=== PATIENT | male | born 1960 | race Caucasian/White ===

== ENCOUNTER 2018-04-02 12:25 | Emergency (ER) | payer SELFPAY ==
--- NOTE | 2018-04-02 12:28 | ER Report ---
History and Physical Time Seen By MD: 12:29 HPI/ROS CHIEF COMPLAINT: Exertional shortness of breath HISTORY OF PRESENT ILLNESS: This is a 57-year-old male who presents to the emergency department via EMS from urgent care for exertional shortness of breath. 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 Patient states then roughly 1 week ago he noticed his heart rate was elevated and had exertional dyspnea, today the shortness of breath became concerning, he did go to urgent care, they noted that he was in a flutter and subsequently sent him to the emergency department for further evaluation. Patient denies having history of atrial fibrillation or flutter patient is a type II diabetic with a history of hypertension otherwise no significant past medical history. Patient is morbidly obese. Patient arrives alert and oriented. No chest pain, no fevers or chills. No nausea or vomiting. No headaches. REVIEW OF SYSTEMS: Constitutional: No fever, no chills. Eyes: No discharge. ENT: No sore throat. Cardiovascular: As above. Respiratory: As above. Gastrointestinal: No abdominal pain, no vomiting. Genitourinary: No hematuria. Musculoskeletal: No back pain. Skin: No rashes. Neurological: No headache. Allergies: Coded Allergies: No Known Drug Allergies (Unverified , 04/02/18) Home Meds Active Scripts Rivaroxaban 20 Mg (XARELTO 20 MG) 20 Mg Tablet, 20 MG PO DAILY for 30 Days, #30 TAB 0 Refills Prov:OTTO MIGUEL- 04/02/18 Metoprolol Tartrate (METOPROLOL TARTRATE) 25 Mg Tablet, 2 TAB PO BID for 30 Days, #130 TAB 0 Refills Prov:OTTO MIGUEL- 04/02/18 Past Medical/Surgical History The patient has a past medical and surgical history of hypertension, non-i nsulin-dependent diabetic. Reviewed Nurses Notes: Yes Constitutional Vital Sign - Last 24 Hours 04/02/18 04/02/18 04/02/18 04/02/18 12:25 12:26 12:29 12:30 Temp 98.9 Pulse ??? 144 Resp 24 B/P (MAP) 148/99 (115) 93/76 93/76 (82) Pulse Ox 88 O2 Delivery Room Air 04/02/18 04/02/18 04/02/18 04/02/18 12:38 12:38 12:40 13:00 Pulse 143 Resp 20 B/P (MAP) 126/94 (105) 155/98 (117) Pulse Ox 93 O2 Flow Rate 2.0 04/02/18 04/02/18 04/02/18 04/02/18 13:05 13:20 13:30 13:35 Pulse 142 141 ??? Resp 20 12 B/P (MAP) ???/??? (1665) Pulse Ox 92 93 04/02/18 04/02/18 04/02/18 04/02/18 13:43 13:50 14:00 14:05 Pulse 134 115 Resp 20 25 B/P (MAP) 133/92 (106) 128/94 (105) Pulse Ox 94 96 04/02/18 04/02/18 04/02/18 04/02/18 14:20 14:30 14:35 14:50 Pulse 139 142 130 Resp 24 25 19 B/P (MAP) 132/95 (107) Pulse Ox 95 97 96 04/02/18 04/02/18 04/02/18 04/02/18 14:51 14:56 15:00 15:26 Pulse 142 112 Resp 18 14 B/P (MAP) 121/99 (106) 130/98 (109) Pulse Ox 97 95 04/02/18 04/02/18 04/02/18 04/02/18 15:30 15:56 16:01 16:30 Pulse 109 110 Resp 18 21 B/P (MAP) 125/87 (100) 109/85 (93) Pulse Ox 92 90 04/02/18 16:31 Pulse 109 Resp 22 Pulse Ox 93 Physical Exam General Appearance: The patient is alert, has no immediate need for airway protection and no signs of toxicity. Eyes: Pupils equal and round no pallor or injection. ENT, Mouth: Mucous membranes are moist. Respiratory: There are no retractions, lungs are clear to auscultation. Cardiovascular: Irregular rate and rhythm, no murmurs, clicks or rubs. Gastrointestinal: Abdomen is obese, soft and non tender, no masses, bowel sounds normal. Neurological: Alert and oriented 4. Moving all extremities. Following all co mmands. No focal neuro deficits. Skin: Warm and dry, no rashes. Musculoskeletal: Neck is supple non tender. Extremities are nontender, nonswollen and have full range of motion. DIFFERENTIAL DIAGNOSIS: After history and physical exam differential diagnosis was considered for shortness of breath including but not limited to pulmonary infectious process, COPD, asthma, pulmonary embolus and congestive heart failure. Medical Decision Making Data Points Result Diagram: 04/02/18 1207 04/02/18 1207 Laboratory Hematology Test 04/02/18 12:07 04/02/18 15:59 Red Blood Count 4.81 M/uL (4.00-5.60) Mean Corpuscular Volume 88.2 fL (80.0-96.0) Mean Corpuscular Hemoglobin 29.3 pg (26.0-33.0) Mean Corpuscular Hemoglobin Concent 33.3 g/dL (32.0-36.0) Red Cell Distribution Width 13.7 % (11.5-14.5) Mean Platelet Volume 11.4 fL (7.2-11.1) Neutrophils (%) (Auto) 65.9 % (39.4-72.5) Lymphocytes (%) (Auto) 27.1 % (17.6-49.6) Monocytes (%) (Auto) 4.9 % (4.1-12.4) Eosinophils (%) (Auto) 1.0 % (0.4-6.7) Basophils (%) (Auto) 1.1 % (0.3-1.4) Nucleated RBC Relative Count (auto) 0.1 /100WBC Neutrophils # (Auto) 8.2 K/uL (2.0-7.4) Lymphocytes # (Auto) 3.4 K/uL (1.3-3.6) Monocytes # (Auto) 0.6 K/uL (0.3-1.0) Eosinophils # (Auto) 0.1 K/uL (0.0-0.5) Basophils # (Auto) 0.1 K/uL (0.0-0.1) Nucleated RBC Absolute Count (auto) 0.01 K/uL D-Dimer Quantitative (PE/DVT) 0.85 ug/ml (0-0.50) Sodium Level 137 mmol/L (137-145) Potassium Level 4.0 mmol/L (3.5-5.0) Chloride Level 102 mmol/L (98-107) Carbon Dioxide Level 23 mmol/L (22-30) Blood Urea Nitrogen 19 mg/dl (9-21) Creatinine 1.30 mg/dl (0.66-1.25) Glomerular Filtration Rate Calc 57.3 Random Glucose 269 mg/dl (75-110) Calcium Level 9.2 mg/dl (8.4-10.2) Total Bilirubin 0.6 mg/dl (0.2-1.3) Aspartate Amino Transf (AST/SGOT) 27 U/L (0-35) Alanine Aminotransferase (ALT/SGPT) 51 U/L (0-56) Alkaline Phosphatase 76 U/L (0-126) B-Type Natriuretic Peptide 184 pg/ml (0-100) Total Protein 6.9 g/dl (6.3-8.2) Albumin 3.8 g/dl (3.5-5.0) Troponin I 0.071 ng/ml Chemistry Test 04/02/18 12:07 04/02/18 15:59 White Blood Count 12.4 k/uL (4.5-11.0) Red Blood Count 4.81 M/uL (4.00-5.60) Hemoglobin 14.1 g/dL (14.0-18.0) Hematocrit 42.4 % (42.0-52.0) Mean Corpuscular Volume 88.2 fL (80.0-96.0) Mean Corpuscular Hemoglobin 29.3 pg (26.0-33.0) Mean Corpuscular Hemoglobin Concent 33.3 g/dL (32.0-36.0) Red Cell Distribution Width 13.7 % (11.5-14.5) Platelet Count 182 K/uL (150-450) Mean Platelet Volume 11.4 fL (7.2-11.1) Neutrophils (%) (Auto) 65.9 % (39.4-72.5) Lymphocytes (%) (Auto) 27.1 % (17.6-49.6) Monocytes (%) (Auto) 4.9 % (4.1-12.4) Eosinophils (%) (Auto) 1.0 % (0.4-6.7) Basophils (%) (Auto) 1.1 % (0.3-1.4) Nucleated RBC Relative Count (auto) 0.1 /100WBC Neutrophils # (Auto) 8.2 K/uL (2.0-7.4) Lymphocytes # (Auto) 3.4 K/uL (1.3-3.6) Monocytes # (Auto) 0.6 K/uL (0.3-1.0) Eosinophils # (Auto) 0.1 K/uL (0.0-0.5) Basophils # (Auto) 0.1 K/uL (0.0-0.1) Nucleated RBC Absolute Count (auto) 0.01 K/uL D-Dimer Quantitative (PE/DVT) 0.85 ug/ml (0-0.50) Glomerular Filtration Rate Calc 57.3 Calcium Level 9.2 mg/dl (8.4-10.2) Total Bilirubin 0.6 mg/dl (0.2-1.3) Aspartate Amino Transf (AST/SGOT) 27 U/L (0-35) Alanine Aminotransferase (ALT/SGPT) 51 U/L (0-56) Alkaline Phosphatase 76 U/L (0-126) B-Type Natriuretic Peptide 184 pg/ml (0-100) Total Protein 6.9 g/dl (6.3-8.2) Albumin 3.8 g/dl (3.5-5.0) Troponin I 0.071 ng/ml Coagulation Test 04/02/18 12:07 D-Dimer Quantitative (PE/DVT) 0.85 ug/ml EKG/Imaging EKG Interpretation 12 lead EKG: Time of EKG 1234. Rhythm: Atrial flutter with a 21 AV conduction, rate of 144 bpm. Hayes: normal QRS: normal ST segments: No ST depression or elevation identified. No previous EKGs for comparison. 12 lead EKG: Time of repeat EKG 1556. Rhythm: Atrial flutter, rate of 109 BPM. Hayes: normal QRS: normal ST segments: No ST depression or elevation identified. Controlled rate as compared to the previous EKG. Imaging Location: [facility] - [place] Patient: Hernan Doan : 1960 Visit/Account:[id number] Date of Sevice: 04/02/2018 Technique: CHEST PA AND LAT HISTORY: Respiratory distress COMPARISON: None available Findings: No acute airspace consolidation. There is mild bibasilar atelectasis. No pleural effusion. The cardiomediastinal silhouette is unremarkable. IMPRESSION: 1. Mild bibasilar atelectasis. Report Dictated By: Ravi Castorena DO at 04/02/2018 1:01 PM Report E-Signed By: Ravi Castorena DO at 04/02/2018 1:04 PM WSN:[id number] FINDINGS: Pulmonary vasculature: There is good contrast opacification of the pulmonary arterial system. No pulmonary embolism. Main pulmonary artery size is normal. Cardiac and mediastinum: Cardiac chambers are prominent. No pericardial effusion. No thoracic aortic aneurysm. Lymph nodes: Numerous mildly enlarged mediastinal and hilar lymph nodes. A dominant subcarinal lymph node measures 3.3 x 2.0 cm. Lungs and pleura: Small to moderate right and small left low-attenuation simple appearing pleural effusions. Mild associated lung base atelectasis. No consolidation or definite nodule. No pneumothorax or edema. Airways: Negative. Upper abdomen: No acute findings. Osseous structures: Thoracic spine multilevel mild degenerative change. No acute findings. IMPRESSION: 1. No pulmonary embolism. 2. Small to moderate right and small left pleural effusions. 3. Nonspecific mediastinal and hilar lymph node enlargement. This could be reactive although correlation with any history of malignancy is recommended. If there are risk factors for malignancy, CT follow-up in 3 months versus pulmonary referral for potential transbronchial biopsy is recommended. Results were discussed with OTTO MIGUEL at 04/02/2018 2:28 PM. Report Dictated By: Bowen Albrecht MD at 04/02/2018 1:59 PM Report E-Signed By: Bowen Albrecht MD at 04/02/2018 2:40 PM WSN:[id number] ED Course/Re-evaluation Clinical Indication for ER IV: Hydration, IV Access ED Course The patient was admitted to room. A history and physical were obtained. Differential diagnoses were considered. An IV was started. A CBC, CMP, troponin and d-dimer were obtained. WBCs 12.4, creatinine 1.3, glucose 269, BNP 184, initial troponin 0.066 in the indeterminate range, elevated d-dimer at 0.85. The patient's repeat troponin was 0.071, I did not believe this is from ACS I believe this is secondary to atrial flutter. I reviewed the laboratory studies with the patient, 2 view chest x-ray showing no acute cardiopulmonary process. A CT of the chest was negative for a pulmonary embolus, he did have bilateral pleural effusions, likely from A flutter. several nodules identified, I did review this with the patient, I did recommend that he follows up with his primary care provider when he returns home for reevaluation of the nodules. The patient was given 20 mg IV diltiazem 2, 2nd dose decreased heart rate to 120s for about 20 minutes. Patient was then given 5 mg IV metoprolol, patient resp onded well to this, heart rate did come down from the 140s to around 100. Did follow-up with 50 mg by mouth immediately release metoprolol. As the patient has been symptomatic for roughly a week and unsure when his arrhythmia started, the patient I discussed at length the potential for blood clots from his fibrillation and atrial flutter, which time I did recommend anticoagulation, the patient did express understanding, patient was given 20 mg by mouth Xarelto in the emergency department, he was also given a prescription for 1 month's worth of Xarelto we discussed potential side effects as well. Patient was also given a month's worth of metoprolol, we did discuss potential size effects including but not limited to hypotension. I did offer to keep the patient an admit to the hospital to ensure that his rhythm remained in a controlled rate as well as monitoring his blood pressure and starting him on anticoagulation, patient declined I offered several times he continued to decline. I did stress the importance of following up with his primary care provider when he returns home as well as filling the medications. The patient expressed understanding and was discharged home. We did ambulate the patient prior to discharge, improved dyspnea, SPO2 remained in the mid to upper 90s on room air. Decision to Disposition Date: Apr 02, 2018 Decision to Disposition Time: 16:50 Depart Departure Latest Vital Signs Vital Signs Date Time Temp Pulse Resp B/P (MAP) Pulse Ox O2 Delivery O2 Flow Rate FiO2 04/02/18 16:31 109 22 93 04/02/18 16:30 109/85 (93) 04/02/18 12:38 2.0 04/02/18 12:29 98.9 Room Air Impression: Primary Impression: Atrial flutter Additional Impression: Pleural effusion Condition: Improved Disposition: HOME OR SELF-CARE New Scripts Rivaroxaban 20 Mg (XARELTO 20 MG) 20 Mg Tablet 20 MG PO DAILY for 30 Days, #30 TAB 0 Refills Prov: OTTO MIGUEL [employer]- 04/02/18 Metoprolol Tartrate (METOPROLOL TARTRATE) 25 Mg Tablet 2 TAB PO BID for 30 Days, #130 TAB 0 Refills Prov: OTTO MIGUEL Robert [facility]- 04/02/18 Patient Instructions: Atrial Flutter (ED), Metoprolol (By injection), Pleural Effusion (ED), Safe Use of Anticoagulants (ED) Additional Instructions: You have been diagnosed with atrial flutter. The CT of your chest does not show any signs of a blood clot, you do however have a small amount of fluid in the base of your lungs called a pleural effusion, this is likely secondary to your heart not beating normally over the past week. With an irregular heart beat you are at risk for a clot, therefore we are star ting you on an anticoagulant that does increase your chance for bleeding, it is called Xarelto, you will take 20mg once a day. I am also starting you on a medication for your irregular heart beat called metoprolol, you will start on 50mg twice a day, do pay attention to your blood pressure and how you are feeling as this can cause your blood pressure to drop low, if you feel like you are dizzy or have any other concerns please stop driving and call 911. I have given you a 30 day supply of both of these medications, you must follow up with your Primary care provider when you return home. You will likely follow up with a shipping specialist too. Drink plenty of water, Get plenty of rest. Return to the ED for any other concerns or worsening symptoms, or follow up in the nearest emergency department. Follow-up with your primary care provider when he returne home for reevaluation of the nodules noted on the CT. Problem Qualifiers Primary Impression: Atrial flutter Atrial flutter type: unspecified Qualified Codes: I48.92 - Unspecified atrial flutter OTTO MIGUEL [facility]- Apr 02, 2018 12:28
[2018-04-02 12:45] LABS: PLATELET COUNT, AUTOMATED 182 K/uL (150-450)
[2018-04-02] MEDS ORDERED: NS(*) 0.9% 1000 ML BAG 1,000 ML IV ONE (12:45)
[2018-04-02] MEDS ORDERED: DILTIAZEM 5 MG/ML 5ML IVPUSH IVP ONE ×2 (12:45→13:25)
--- NOTE | 2018-04-02 13:08 | RADIOLOGY IMAGING REPORT ---
FACILITY: [facility] - [place] PATIENT NAME: Hernan Doan : 1960 MR: [id number] V: [id number] EXAM DATE: ORDERING PHYSICIAN: OTTO MIGUEL TECHNOLOGIST: Location: [facility] - [place] Patient: Hernan Doan : 1960 Visit/Account:[id number] Date of Sevice: 04/02/2018 Technique: CHEST PA AND LAT HISTORY: Respiratory distress COMPARISON: None available Findings: No acute airspace consolidation. There is mild bibasilar atelectasis. No pleural effusion. The cardiomediastinal silhouette is unremarkable. IMPRESSION: 1. Mild bibasilar atelectasis. Report Dictated By: Ravi Castorena DO at 04/02/2018 1:01 PM Report E-Signed By: Ravi Castorena DO at 04/02/2018 1:04 PM WSN:[id number]
--- NOTE | 2018-04-02 13:10 | EKG ---
FACILITY: [facility] - [place] PATIENT NAME: SARABJIT QUINN : [id number] MR: [id number] V: [id number] EXAM DATE: ORDERING PHYSICIAN: OTTO MIGUEL TECHNOLOGIST: DONNA Ryan Reason : POSSIBLE A FLUTTER Blood Pressure : / mmHG Vent. Rate : 144 BPM Atrial Rate : 288 BPM P-R Int : 000 ms QRS Dur : 080 ms QT Int : 198 ms P-R-T Axes : 255 -09 270 degrees QTc Int : 306 ms Atrial flutter with 2:[address] abnormality, possible inferior subendocardial injury Abnormal ECG No previous ECGs available Confirmed by Rad Ayala ([id number]) on 04/02/2018 10:58:25 PM Referred By: Confirmed By:Rad Newton
[2018-04-02] MEDS ORDERED: IOPAMIDOL 76% 100 ML INFUS BTL 100 ML ONE (13:32)
[2018-04-02] MEDS ORDERED: NS(*) 0.9% 50 ML BAG 50 ML ONE (13:33)
[2018-04-02] MEDS ORDERED: DILTIAZEM HCL* 100 MG ADDVIAL 100 MG in NS(*) 0.9% 100 ML ADDVANT BAG 100 ML IV SCH (14:25)
--- NOTE | 2018-04-02 14:43 | RADIOLOGY IMAGING REPORT ---
FACILITY: [facility] - [place] PATIENT NAME: Hernan Doan : 1960 MR: [id number] V: [id number] EXAM DATE: ORDERING PHYSICIAN: OTTO MIGUEL TECHNOLOGIST: Location: [facility] - [place] Patient: Hernan Doan : 1960 Visit/Account:[id number] Date of Sevice: 04/02/2018 EXAMINATION: CT CHEST PULMONARY ANGIOGRAM COMPARISON: None available HISTORY: Respiratory distress. Elevated d-dimer. PROCEDURE: Pulmonary arterial phase imaging of the chest with 97 mL intravenous Isovue 370. Reconstru ction of the source data set includes multiplanar 2D in the sagittal and coronal planes, and 3D recon structed coronal slab MIP series. One of the following dose optimization techniques was utilized in the performance of this exam: Autom ated exposure control; adjustment of the mA and/or kV according to the patient's size; or use of an i terative reconstruction technique. Specific details can be referenced in the facility's radiology C T exam operational policy. FINDINGS: Pulmonary vasculature: There is good contrast opacification of the pulmonary arterial system. No pul monary embolism. Main pulmonary artery size is normal. Cardiac and mediastinum: Cardiac chambers are prominent. No pericardial effusion. No thoracic aortic aneurysm. Lymph nodes: Numerous mildly enlarged mediastinal and hilar lymph nodes. A dominant subcarinal lymph node measures 3.3 x 2.0 cm. Lungs and pleura: Small to moderate right and small left low-attenuation simple appearing pleural eff usions. Mild associated lung base atelectasis. No consolidation or definite nodule. No pneumothorax o r edema. Airways: Negative. Upper abdomen: No acute findings. Osseous structures: Thoracic spine multilevel mild degenerative change. No acute findings. IMPRESSION: 1. No pulmonary embolism. 2. Small to moderate right and small left pleural effusions. 3. Nonspecific mediastinal and hilar lymph node enlargement. This could be reactive although correlat ion with any history of malignancy is recommended. If there are risk factors for malignancy, CT follo w-up in 3 months versus pulmonary referral for potential transbronchial biopsy is recommended. Results were discussed with OTTO MIGUEL at 04/02/2018 2:28 PM. Report Dictated By: Bowen Albrecht MD at 04/02/2018 1:59 PM Report E-Signed By: Bowen Albrecht MD at 04/02/2018 2:40 PM WSN:[id number]
[2018-04-02] MEDS ORDERED: METOPROLOL TART 5 MG/5 ML VIAL IVP ONE (14:45)
[2018-04-02] MEDS ORDERED: DILTIAZEM(*) 5 MG/ML 5ML IVP 125 MG in NS(*) 0.9% 100 ML BAG 100 ML IV SCH (14:45)
[2018-04-02] MEDS ORDERED: METOPROLOL TART 50 MG TAB PO ONE ×2 (15:10→16:50)
--- NOTE | 2018-04-02 16:02 | EKG ---
FACILITY: [facility] - [place] PATIENT NAME: SARABJIT QUINN : [id number] MR: [id number] V: [id number] EXAM DATE: ORDERING PHYSICIAN: OTTO MIGUEL TECHNOLOGIST: DONNA Test Reason : S/P A FLUTTER Blood Pressure : / mmHG Vent. Rate : 109 BPM Atrial Rate : 278 BPM P-R Int : 000 ms QRS Dur : 086 ms QT Int : 402 ms P-R-T Axes : 000 -25 266 degrees QTc Int : 541 ms Atrial flutter with variable AV block ST and T wave abnormality, consider anterior ischemia Abnormal ECG When compared with ECG of 02-APR-2018 12:34, No significant change was found Confirmed by Rad Ayala ([id number]) on 04/02/2018 10:58:53 PM Referred By: Confirmed By:Rad Newton
[2018-04-02 16:30] VITALS: BP 109/85
[2018-04-02] MEDS ORDERED: METO25TA93 PO (16:35)
[2018-04-02] MEDS ORDERED: RIVA20TA PO (16:35)
[2018-04-02] MEDS ORDERED: RIVAROXABAN 10 MG TAB PO ONE (16:50)
== END 2018-04-02 17:03 | disposition home or self-care (01) ==
LOC: ER 12:40
DX: I48.92 Unspecified atrial flutter (principal); J90 Pleural effusion, not elsewhere classified; I44.30 Unspecified atrioventricular block
CPT/HCPCS: 36415; 71046; 71275; 83880; 84484; 85025; 85379; 93005; 96361; 96365; 96366; 96375; 96376; 99285; J3490; J7030; J7050; Q9967; 82040; 82247; 82310; 82374; 82435; 82565; 82947; 84075; 84132; 84155; 84295; 84450; 84460; 84520

== ENCOUNTER → 2018-04-02 | Outpatient (CLI) | payer SELFPAY ==
[~2018-04-02] MED LIST: METO25TA93 PO; RIVA20TA PO
== END ==
LOC: AMB 12:05
PROVIDERS: ATTEND Nurse Practitioner
DX: R06.00 Dyspnea, unspecified (principal); E11.9 Type 2 diabetes mellitus without complications
CPT/HCPCS: A0425; A0427